=== PATIENT | male | born 1975 | race Caucasian/White ===

== ENCOUNTER 2019-01-31 22:21 | Emergency (ER) | payer OTHER ==
[~2019-01-31] VITALS: Ht 172.7 cm; Wt 95.3 kg
[2019-01-31 22:29] VITALS: BP 120/71
--- NOTE | 2019-01-31 22:33 | NUR ---
PT AMBULATORY TO [facility].
--- NOTE | 2019-01-31 23:14 | NUR ---
PT AMBULATED TO BED 9
--- NOTE | 2019-01-31 23:20 | NUR ---
BIB SELF WITH REPOTS OF EAR BUD ENDS IN BILATERAL EARS. EASILY VISABLE ON BOTH SIDES. DENIES PAIN. STATES IT HAPPENED 40 MIN PRIOR TO ARRIVAL. ERMD MADE AWARE.
--- NOTE | 2019-01-31 23:58 | NUR ---
Dr. Lazcano evaluating patient at bedside.
--- NOTE | 2019-01-31 23:58 | NUR ---
ERMD AT BEDSIDE
[2019-02-01 00:05] VITALS: BP 120/71
--- NOTE | 2019-02-01 00:05 | NUR ---
Ambulatory with steady gait. Pt left prior to ACI.
== END 2019-02-01 00:05 | disposition home or self-care (01) ==
LOC: MED 22:21
DX: T16.2XXA Foreign body in left ear, initial encounter (principal); T16.1XXA Foreign body in right ear, initial encounter; X58.XXXA Exposure to other specified factors, initial encounter; Y93.89 Activity, other specified; Y92.89 Other specified places as the place of occurrence of the external cause; Y99.8 Other external cause status
CPT/HCPCS: 69200; 99284

== ENCOUNTER 2019-02-21 02:15 | Emergency (ER) | payer OTHER, MEDICAID ==
[~2019-02-21] VITALS: Ht 172.7 cm; Wt 90.7 kg
[2019-02-21 02:24] VITALS: BP 156/84
--- NOTE | 2019-02-21 02:27 | NUR ---
PT AMBULATED TO BED 2.
[2019-02-21] MEDS ORDERED: KETOROLAC 30 MG/ML VIAL IM ONE (02:45)
--- NOTE | 2019-02-21 02:45 | NUR ---
43 YO M BIB SELF PRESENTS TO ED S/P FALL IN [employer]S PARKING LOT. PT STATES HE TRIPPED OVER CURB AND FELL ON PAVEMENT AND LANDED ON HIS HANDS WHILE TRYING TO BREAK FALL. HE NOW C/O BILATERAL 4/10 HAND PAIN. NO OTHER TRAUMA REPORTED. -- ABRASION AND REDNESS NOTED TO LEFT ANTERIOR HAND AROUND FIRST DIGIT. NO OTHER GROSS TRAUMA NOTED. NO GROSS DEFORMITIES NOTED. -- RADIAL PULSES STRONG, EQUAL. CAP REFILL <3 SECONDS. MOTOR STRENGTH EQUAL, IN TACT. -- PT APPEARS CALM. IS COOPERATIVE, BEHAVIOR APPROPRIATE. -- SKIN PINK, WARM, DRY. BREATHING EVEN, UNLABORED. VSS. PMH-- DENIES RX-- DENIES
[2019-02-21 03:25] VITALS: BP 156/84
== END 2019-02-21 03:25 | disposition home or self-care (01) ==
LOC: MED 02:15
DX: M79.645 Pain in left finger(s) (principal); M79.644 Pain in right finger(s); M54.9 Dorsalgia, unspecified
CPT/HCPCS: 96372; 99283; J1885

== ENCOUNTER 2019-03-31 04:22 | Emergency (ER) | payer OTHER, MEDICAID ==
[~2019-03-31] VITALS: Ht 172.7 cm; Wt 86.2 kg
[2019-03-31 04:28] VITALS: BP 131/52
--- NOTE | 2019-03-31 04:30 | NUR ---
PT AMBULATED TO BED 8.
--- NOTE | 2019-03-31 04:33 | NUR ---
43 Y/O M PRESENTED TO ED WITH C/O L SIDE NECK PAIN X 3 HOURS. 5/10 PAIN, ACHING. PER PT "I WAS REACHING INTO MY CAR AND I THINK I MIGHT'VE PULLED A MUSCLE." FULL ROM TO NECK, SOME DISCOMFORT WHEN TURNING HEAD TO THE RIGHT. ERMD NOTIFIED. WILL CONTINUE TO MONITOR.
== END 2019-03-31 04:56 | disposition home or self-care (01) ==
LOC: MED 04:22
DX: S13.9XXA Sprain of joints and ligaments of unspecified parts of neck, initial encounter (principal); X50.1XXA Overexertion from prolonged static or awkward postures, initial encounter; Y93.89 Activity, other specified; Y92.89 Other specified places as the place of occurrence of the external cause; Y99.8 Other external cause status
CPT/HCPCS: 99282